=== PATIENT | female | born 1995 | race Caucasian/White ===

== ENCOUNTER 2017-10-29 21:32 | Emergency (ER) | payer OTHER ==
[~2017-10-29] VITALS: Ht 157.5 cm; Wt 78.2 kg
[~2017-10-29 21:32] MED LIST: ACET-6134 PO
[2017-10-29 21:43] VITALS: BP 124/74
--- NOTE | 2017-10-29 21:50 | NUR ---
22 Y/O F W/C/O DRY COUGH/ NECK PAIN X 2 WKS. PT STATES WAS SEEN 1 WK AGO AT [place] AND SENT HOME WITH STEROIDS AND COUGH SYRUP BUT SHE STATES NOT FEELING BETTER. MED HX KIDNEY STONES. SKIN IS PINK/WARM/DRY; AAOX4 WITH EVEN AND STEADY GAIT; PATIENT STATES PATIENT POSITIONED FOR COMFORT; HOB ELEVATED; BEDRAILS UP X2; BED DOWN. ER MD MADE AWARE OF PT STATUS.
--- NOTE | 2017-10-29 22:46 | NUR ---
Patient being evaluated by physician at bedside.
--- NOTE | 2017-10-29 22:52 | NUR ---
STREP SWAB DONE, PUT IN SPECIMEN CONTAINER IN ER
--- NOTE | 2017-10-29 22:53 | NUR ---
NO FLU SWAB HERE, LAB NOTIFIED TO BRING MORE INTO ER
--- NOTE | 2017-10-29 23:00 | NUR ---
FLU SWAB DONE AND GIVEN TO LAB [facility]
[2017-10-29 23:09] VITALS: BP 122/73
--- NOTE | 2017-10-29 23:09 | NUR ---
Patient discharged with v/s stable. Written and verbal after care instructions given and explained. Patient alert, oriented and verbalized understanding of instructions. Ambulatory with steady gait. All questions addressed prior to discharge. ID band removed. Patient advised to follow up with PMD. Rx of MOTRIN, CODEINE/PHENYLEPHINE/PROMETHAZINE, ZITHROMAX given. Patient educated on indication of medication including possible reaction and side effects. Opportunity to ask questions provided and answered.
== END 2017-10-29 23:09 | disposition home or self-care (01) ==
LOC: MED 21:32
DX: J02.8 Acute pharyngitis due to other specified organisms (principal); B96.89 Other specified bacterial agents as the cause of diseases classified elsewhere; Z79.899 Other long term (current) drug therapy
CPT/HCPCS: 36415; 87081; 87804; 99284